=== PATIENT | male | born 2000 ===

== ENCOUNTER 2024-12-26 21:15 | Emergency (ER) | payer MEDICAID, SELFPAY ==
[2024-12-26 21:23] VITALS: BP 160/70; PULSE 116; RESP 18; TEMP 38; O2SAT 98; BMI 33.5
--- NOTE | 2024-12-26 21:31 | ED.GENADULT ---
[facility] - General Adult General Date Seen: 12/26/24 Chief complaint: Sore Throat Stated complaint: Sore Throat, Fever, Weakness Time Seen by Provider: 12/26/24 21:16 Source: patient Mode of arrival: ambulatory Limitations: no limitations History of Present Illness [facility] narrative: Patient is a 24-year-old male presenting to the emergency department for sore throat. Sore throat has been going on for the past 4 days.. He states symptoms have been consistent since then. Has been taking Tylenol and ibuprofen for fevers and last took them 6 hours ago. States the pain in his throat is worse on the right side compared to the left his also had some right ear pain. Has not be eating much due to the pain but has been drinking plenty of fluids. Has not noticed any changes to his voice. Denies any difficulty breathing. Has not noticing swelling on her tongue. No other concerns noted. Not aware of any sick contacts. Related Data Home Medications ?Medication ?Instructions ?Recorded ?Confirmed No Known Home Medications 12/26/24 12/26/24 Allergies Allergy/AdvReac Type Severity Reaction Status Date / Time No Known Drug Allergies Allergy Verified 12/26/24 21:26 Review of Systems Narrative: Pertinent systems reviewed and were negative unless stated in HPI PFSH PFS Social History Smoking Status: Never smoker Do you use any of these nicotine containing products: None How often do you have a drink containing alcohol: never AUDIT-C Alcohol total score: 0 Non-prescribed substance use: denies use Exam Narrative: Exam Narrative: Const: Well-nourished, Well-developed, in mild distress Eyes: PERRL, no conjunctival injection, and symmetrical lids HENT: Atraumatic external nose and ears. Moist mucous membranes. Tonsillar exudate noted on the right. Uvula midline. No swelling noted underneath tongue. Normal tympanic membranes bilaterally Neck: Symmetric, trachea midline, No thyromegaly. MSK:Extremities w/o deformity, Normal Active ROM Skin: Warm, Dry. No rashes or lesions. Neuro: Normal Muscle tone, No focal neurological deficits. Psych: Awake, Alert, & Oriented x3. Appropriate mood and affect. Const: Vital Signs, click to edit/add: Vital Signs - 24 hr 12/26/24 21:23 12/26/24 21:36 12/26/24 22:29 Temperature 100.4 F H 100.4 F H 99.6 F Pulse Rate [Pulse Oximeter] 116 H 114 H Respiratory Rate 18 16 Blood Pressure [Ri ght Upper Arm] 160/70 H 130/53 L Pulse Oximetry 98 98 Oxygen Delivery Me thod Room Air Room Air Course Vital Signs Vital signs: Initial Vital Signs Temperature 100.4 F H 12/26/24 21:23 Temperature Source Temporal Artery Scan 12/26/24 21:23 Pulse Rate 116 H 12/26/24 21:23 Respiratory Rate 18 12/26/24 21:23 Blood Pressure 160/70 H 12/26/24 21:23 Blood Pressure Mean 100 12/26/24 21:23 Blood Pressure Position Sitting 12/26/24 21:23 Pulse Oximetry 98 12/26/24 21:23 Oxygen Delivery Method Room Air 12/26/24 21:23 Vital Signs Temperature 100.4 F H 12/26/24 21:23 Pulse Rate 116 H 12/26/24 21:23 Respiratory Rate 18 12/26/24 21:23 Blood Pressure 160/70 H 12/26/24 21:23 Pulse Oximetry 98 12/26/24 21:23 Oxygen Delivery Method Room Air 12/26/24 21:23 Temperature 99.6 F 12/26/24 22:29 Pulse Rate 114 H 12/26/24 22:29 Respiratory Rate 16 12/26/24 22:29 Blood Pressure 130/53 L 12/26/24 22:29 Pulse Oximetry 98 12/26/24 22:29 Oxygen Delivery Method Room Air 12/26/24 22:29 Medications Administered Medications: Discontinued Medications Generic Name Dose Route Start Last Admin Trade Name Freq PRN Reason Stop Dose Admin Acetaminophen 650 mg 12/26/24 21:31 12/26/24 21:36 Acetaminophen 325 Mg Tablet PO 12/26/24 21:32 650 mg ONCE ONE Administration Medical Decision Making MDM Narrative Medical decision making narrative: Patient is a 24-year-old male presenting for sore throat and earache. He is also having some body aches. He does have tonsillar exudates on his right tonsil. Will check a strep. Will also check COVID/flu/RSV. Tympanic membranes appear normal. Patient is not showing signs of peritonsillar abscess, Raymond angina, retropharyngeal abscess,Lemierre disease or any other concerning oral pharynx or deep neck space abscesses. Imaging is not necessary. Swabs were all negative so I also did a mono screen. [place] screen also was negative. Fever improved after the Tylenol. Overall he is doing well. I believe he is safe for discharge. He is agreeable to this plan. Lab Data Labs: Lab Results 12/26/24 12/26/24 12/26/24 Range/Units 21:28 21:28 22:33 SARS-CoV-2 (PCR) Negative SARS-CoV-2 (Negative) Monoscreen Negative (Negative) Influenza Type A (PCR) Negative PCR FLU A (Negative) Influenza Type B (PCR) Negative PCR FLU B (Negative) RSV (PCR) Negative PCR RSV (Negative) Group A Strep DNA Cancelled NOT DETECTED Discharge Plan Discharge Clinical Impression: Pharyngitis Qualifiers: Pharyngitis/tonsillitis etiology: unspecified etiology Qualified Code(s): J02.9 - Acute pharyngitis, unspecified Patient Disposition: Home, Self-Care Condition: Stable Instructions: Pharyngitis (ED) Additional Instructions: Your sore throat is likely from a virus. Recommend taking Tylenol ibuprofen tell symptoms improved. Return to emergency department for new or worsening symptoms including but not limited to difficulty breathing, changes in voice, swelling underneath your tongue. Prescriptions: No Action No Known Home Medications Follow Up/Referrals: Provider,Not a Local [Primary Care Provider, Family Practice] Stand Alone [facility]: [facility] Inst[facility]
[2024-12-26 21:36] VITALS: TEMP 38
[2024-12-26] MEDS: ACETAMINOPHEN 325 MG TABLET 650 MG PO (21:36)
[2024-12-26 22:03] LABS: Strep A DNA Probe* NOT DETECTED (Not Detectd)
[2024-12-26 22:16] LABS: PCR FLU A Negative PCR FLU A (Negative); PCR FLU B Negative PCR FLU B (Negative); PCR RSV Negative PCR RSV (Negative); SARS PCR* Negative SARS-CoV-2 (Negative)
[2024-12-26 22:29] VITALS: BP 130/53; PULSE 114; RESP 16; TEMP 37.6; O2SAT 98
[2024-12-26 22:47] LABS: Mono Screen* Negative (Negative)
[2024-12-26] MEDS: DEXAMETHASONE 10 MG/ML PF PO (23:03)
== END 2024-12-26 23:09 | disposition home or self-care (01) ==
PROVIDERS: Emergency Provider Student in an Organized Health Care Education/Training Program
DX: J02.9 Acute pharyngitis, unspecified (principal); H92.01 Otalgia, right ear
CPT/HCPCS: 36415; 86308; 87631; 87651; 99283; 99284; A9270; J1100